=== PATIENT | male | born 1975 | race Caucasian/White ===

== ENCOUNTER 2023-07-04 19:36 | Outpatient (CLI) | payer BC, SELFPAY | END 2023-07-04 19:37 | disposition home or self-care (01) | LOC: SLEEP 19:36 | PROVIDERS: Visit Provider Otolaryngology | DX: G47.33 Obstructive sleep apnea (adult) (pediatric) (principal) | CPT/HCPCS: 95806 ==

== ENCOUNTER 2023-08-09 19:23 | Outpatient (CLI) | payer BC, SELFPAY ==
--- NOTE | 2023-08-22 08:58 | W.PM.SLEEP ---
Sleep Study Details Details Interpreting Provider: Tanna Date of Sleep Study: 08/09/23 Sleep Study Details: STUDY TYPE:? Home unattended ? BMI:? 28.6 ORDERING PROVIDER:? Tanna INDICATION:? Concerns about sleep apnea ? SLEEP SUMMARY:? 283.5 minutes monitored RESPIRATORY SUMMARY:? AHI 11.6, supine 21.1, nonsupine 6.3 Low oxygen 87 0.3% of study oxygen below 90% Snoring 13.3% PERIODIC LIMB MOVEMENTS OF SLEEP:? Not recorded during home study CARDIAC:? Range 60-93, mean 69.8 IMPRESSION:? Mild obstructive sleep apnea with supine position dependency RECOMMENDATION: Treatment options include CPAP AutoSet 4-17, dental appliance and/or airway expansion surgery.
== END 2023-08-09 19:24 | disposition home or self-care (01) ==
LOC: SLEEP 19:24
PROVIDERS: Visit Provider Otolaryngology
DX: G47.33 Obstructive sleep apnea (adult) (pediatric) (principal)
CPT/HCPCS: 95806